=== PATIENT | female | born 1945 | race Two or more races ===

== ENCOUNTER 2024-09-22 17:15 | Emergency (ER) | payer OTHER, MEDICAID ==
[~2024-09-22] VITALS: Ht 162.6 cm; Wt 68.5 kg
--- NOTE | 2024-09-22 18:01 | ED.PDOC ---
Back pain HPI HPI Comments 79Y F with PMHx MS, DM, HTN, and HLD presents to ED via EMS for chief complaint back pain s/p fall. Additional symptoms include neck pain, posterior head pain, and bilateral hip pain. Per caregiver, pt was washing her hands when she lost her balance and fell backwards. Pt landed on her buttocks and her head hit the door of the restroom. Patient denies loss of consciousness. She denies any vision changes or new focal weakness. Patient's caregiver notes that the patient does have problems with equilibrium and often loses her balance and has fallen in the past. No other symptoms reported. Chief Complaint: Fall Injury Time Seen by MD: 17:50 Primary Care Provider: CHIP Reviewed Notes: Nurses Notes, Spool Cleaner Notes, Medications, Allergies Allergies: Coded Allergies: NO KNOWN ALLERGIES (Unverified , 05/21/18) Information Source: Patient, Emergency Med Personnel Mode of Arrival: EMS Brought in by: EMS Timing: Hours Duration: Since onset Location of Back pain: (B) Cervical, (B) Lower back, (B) Thoracic, (B) Upper back, Other (bilateral hips) Severity: Mild Prehospital treatment: None Quality: Sharp Onset: Fall Circumstance: Other History of: None Modifying Factors: Nothing Associated signs and symptoms: None Past Medical History PAST MEDICAL HISTORY: DM, High Lipids, HTN, Thyroid Past Medical History (Other): Multiple Sclerosis Surgical History: Denies all surgeries MOLD FORMS BUILDER History: No Pertinent MOLD FORMS BUILDER History Family History Family History: Unobtainable Social History Smoker: Non-Smoker Alcohol: Denies ETOH Use Drugs: Denies Drug Use Lives In: Home Constitutional: denies: chills, diaphoresis, fatigue, fever, malaise, sweats, weakness, others EENTM: denies: blurred vision, double vision, ear bleeding, ear discharge, ear drainage, ear pain, ear ringing, eye pain, eye redness, hearing loss, mouth pain, mouth swelling, nasal discharge, nose bleeding, nose congestion, nose pain, photophobia, tearing, throat pain, throat swelling, voice changes, others Respiratory: denies: cough, hemoptysis, orthopnea, SOB at rest, shortness of breath, SOB with excertion, stridor, wheezing, others Cardiovascular: denies: chest pain, dizzy spells, diaphoresis, Dyspnea on exertion, edema, irregular heart beat, left arm pain, lightheadedness, palpitations, PND, syncope, others Gastrointestinal: denies: abdomen distended, abdominal pain, blood streaked bowels, constipated, diarrhea, dysphagia, difficulty swallowing, hematemesis, melena, nausea, poor appetite, poor fluid intake, rectal bleeding, rectal pain, vomiting, others Genitourinary: denies: abnormal vagina bleeding, burning, dyspareunia, dysuria, flank pain, frequency, hematuria, incontinence, pain, , vagina discharge, urgency, others Neurological: denies: dizziness, fainting, headache, left sided numbness, left sided weakness, numbness, paresthesia, pre-existing deficit, right sided numbness, right sided weakness, seizure, speech problems, tingling, tremors, weakness, others Musculoskeletal: reports: back pain, neck pain, others (bilateral hip pain); denies: gout, joint pain, joint swelling, muscle pain, muscle stiffness Integumetry: denies: bruises, change in color, change in hair/nails, dryness, laceration, lesions, lumps, rash, wounds, others Allergic/Immunocompromised: denies: Difficulty Healing, Frequent Infections, Hives, Itching, others Hematologic/Lymphatic: denies: anemia, blood clots, easy bleeding, easy bruising, swollen glands, others Endocrine: denies: excessive hunger, excessive sweating, excessive thirst, excessive urination, flushing, intolerance to cold, intolerance to heat, unexplained weight gain, unexplained weight loss, others Psychiatric: denies: anxiety, bipolar disorder, depression, hopeless, panic disorder, schizophrenia, sleepless, suicidal, others All Other Systems: Reviewed and Negative Physical Exam General Appearance: No Apparent Distress HEENT: PERRL/EOMI, Other (Occipital scalp soft tissue tenderness and malaise soft tissue swelling. No crepitus or hematoma.) Neck: Full Range of Motion, Normal Inspection, Supple, Other (Upper midline and paraspinal neck tenderness to palpation. No step-off or bruising.) Respiratory: Chest Non-Tender, Lungs Clear, No Respiratory Distress, Normal Breath Sounds Cardiovascular: No Edema, No JVD, Regular Rate/Rhythm Breast Exam: Deferred Gastrointestinal: Non Tender, Soft, Other (G-tube) Genitalia: Deferred Pelvic: Deferred Rectal: Deferred Extremities: Normal inspection, Normal range of motion, No pedal edema, Tender (Bilateral hips, midline and paraspinal lumbosacral tenderness) Neurologic: Alert (nonverbal at baseline but responds appropriately to questions by nodding yes or no), Other (Moves all extremities.) Cerebellar Function: NOT DONE Reflexes: NOT DONE Skin: Dry, Normal Color, Warm Lymphatic: NOT DONE Was a procedure done? Was a procedure done?: No Back Pain Differential Dx Differential Diagnosis: Musculoskeletal Pain Other Differential Diagnosis Scalp contusion, concussion, skull fracture, intracranial hemorrhage, neck strain, spine fracture/subluxation, pelvic or hip fracture, contusion, among others X-Ray, Labs, Meds, VS Vital Signs Date Time Temp Pulse Resp B/P (MAP) Pulse Ox O2 Delivery O2 Flow Rate FiO2 09/22/24 18:50 81 18 96 Room Air* 0 21 09/22/24 17:25 98.2 90 15 112/53 (72) 98 98.2 Current Medications Medications (Trade) Dose Ordered Sig/Sekou Route Start Time Stop Time Status Last Admin Ketorolac Tromethamine (Toradol Injection) 30 mg ONCE ONCE IM 09/22/24 19:00 09/22/24 19:08 DC 09/22/24 19:37 ORDERING PHYSICIAN: ROXANN YATES MD PROCEDURE(s): HWOCT - HEAD WITHOUT CONTRAST REASON: Occipital head trauma ORDER NUMBER(s): [id number], ACCESSION NUMBER(s): [id number] Exam: CT HEAD WITHOUT CONTRAST History: Occipital head trauma Technique: [address] images through the posterior fossa and the supratentorial compartment were acquired without contrast and imaged using soft tissue and bone algorithms. RADIATION DOSE: DLP 916.48 mGy.cm; CTDI vol 54.85 mGy. Comparison: None Findings: There is no evidence of an intracranial hemorrhage, acute large vessel infarct, mass effect, or midline shift. There is mild cerebral atrophy. Moderate calcification of the carotid siphons. Right frontal, ethmoid, and maxillary sinus disease. The calvarium, orbits, remaining paranasal sinuses, sella, middle ears, and mastoids are unremarkable. The superficial soft tissues are within normal limits. Impression: 1. No acute intracranial abnormality. 2. Pansinus disease. RING PHYSICIAN: ROXANN YATES MD PROCEDURE(s): CS2 - CERVICAL WITHOUT CONTRAST REASON: Neck pain status post fall ORDER NUMBER(s): [id number], ACCESSION NUMBER(s): [id number] EXAM: CT CERVICAL WITHOUT CONTRAST INDICATION: Neck pain status post fall EXAM DATE: 09/22/2024 06:03 PM COMPARISON: None TECHNIQUE: Multiple axial CT images of the cervical spine were obtained using bone algorithm. Axial and coronal reformatting was done. Bone and soft tissue windows were reviewed. Radiation Dose Information: CT Dose: CTDI volume is not available mGy. Dose-length product is not available mGy*cm Findings: There is no evidence of an acute fracture or spondylolisthesis. The vertebral body heights are well-maintained. The craniocervical junction and dens are intact. No spinal canal stenosis. There is flattening of the cervical lordosis. The thyroid gland is unremarkable. The lung apices demonstrate no acute abnormality. The paraspinal and neck soft tissues appear within normal limits. C2-3: Normal C3-4: Normal C4-5: Normal C5-6: Normal C6-7: Normal C7-T1: Normal Impression: 1. No evidence of an acute fracture. RING PHYSICIAN: ROXANN YATES MD PROCEDURE(s): TS2CT - THORACIC SPINE WO CONTRAS REASON: Mid back pain status post fall ORDER NUMBER(s): [id number], ACCESSION NUMBER(s): [id number] Procedure: CT THORACIC SPINE WO CONTRAS 09/22/2024 06:05 PM Indication: Mid back pain status post fall Comparison Study: None Technique: Axial images thoracic were obtained and reformatted in coronal and sagittal planes. All CT scans at this medical facility are performed using dose modulation techniques as appropriate to a performed exam including the following: Automated exposure control was utilized; adjustment of the MA and/or KV according to patient size; and use of iterative reconstruction technique. CT Dose: CTDI volume is 28.95 mGy. Dose-length product is 950.98 mGy*cm FINDINGS: Bones: Mild chronic appearing depression of all thoracic endplates noted likely related to osteopenia /osteomalacia with resultant mild exaggerated kyphosis. Flowing anterior ossification is noted in the thoracic spine at several levels with preservation of disc spaces contiguous compatible with diffuse idiopathic skeletal hyperostosis. Soft tissues: Paraspinal and prevertebral soft tissues unremarkable. Atherosclerotic calcification of the bilateral carotid bulbs noted. IMPRESSION: 1. No acute osseous abnormality. RING PHYSICIAN: ROXANN YATES MD PROCEDURE(s): LS2CT - LS SPINE WO CONTRAST REASON: Low back pain status post fall ORDER NUMBER(s): [id number], ACCESSION NUMBER(s): [id number] CT OF THE LUMBAR SPINE WITHOUT CONTRAST HISTORY: Low back pain status post fall COMPARISON: Correlation made to abdomen and pelvis CT dated 04/10/2024 TECHNIQUE: Thin section helical axial scans of the lumbar spine obtained. Sagittal and coronal reformatted images were performed. One or more of the following radiation dose reduction techniques were used for this examination: automated exposure control, adjustment of the mA and/or kV according to patient size, use of iterative reconstruction technique. CTDI: 32.46 mGy DLP: 941.72 mGy-cm FINDINGS: No grossly displaced fractures or subluxations identified. Vertebral body heights appear maintained. Advanced disc disease mainly at L4-L5 and L5-S1. The bony spinal canal grossly patent. The sacroiliac joints appear symmetric. No free air or fluid in the imaged pelvis. Aortoiliac atherosclerotic calcifications noted. Colonic diverticulosis partially imaged. Visualized appendix appears normal caliber. IMPRESSION: Degenerative changes of the lower lumbar spine. No grossly displaced fractures or subluxations identified. If symptoms persist, follow-up MRI may be considered to further evaluate. RING PHYSICIAN: ROXANN YATES MD PROCEDURE(s): PL2CT - PELVIS WO CONTRAST REASON: Bilateral hip pain status post fall ORDER NUMBER(s): [id number], ACCESSION NUMBER(s): [id number] Procedure: CT PELVIS WO CONTRAST 09/22/2024 06:09 PM Indication: Bilateral hip pain status post fall Comparison Study: None Technique: Axial images pelvis were obtained and reformatted in coronal and sagi ttal planes. All CT scans at this medical facility are performed using dose modulation techniques as appropriate to a performed exam including the following: Automated exposure control was utilized; adjustment of the MA and/or KV according to patient size; and use of iterative reconstruction technique. CT Dose: CTDI volume is 18.35 mGy. Dose-length product is 616.0 mGy*cm FINDINGS: Bones: No acute fracture or dislocation. Pelvic bones are intact. The bilateral hip joints are maintained. Symphysis pubis SI joints are maintained. Soft tissues: Unremarkable. IMPRESSION: 1. No acute osseous abnormality. X-Ray, Labs, Meds, VS Comment 79-year-old female with a history of MS, diabetes, hypertension and hyperlipidemia brought in by caregiver for evaluation of head, back pain and bilateral hip pain status post fall Vitals unremarkable Exam remarkable for occipital scalp, midline and paraspinal cervical, thoracic and lumbar tenderness, bilateral hip tenderness Rhythm strip independently interpreted by me: Sinus rhythm, rate 90, no ectopy. CT head, C-spine, T-spine, L-spine and pelvis unremarkable for any acute fracture or acute traumatic finding Patient treated with the following in the ED: Toradol 30 mg IM On re-evaluation, patient stated pain had improved. Vitals were stable. Kandy ely appears stable for discharge with close outpatient follow-up with her primary physician. Rx meloxicam Time of 1ST Reevaluation: 18:20 Reevaluation 1ST: Unchanged Time of 2ND Reevaluation: 21:28 Reevaluation 2ND: Improved Patient Education/Counseling: Diagnosis, Treatment Family Education/Counseling: Diagnosis, Treatment Departure 1 Departure Time of Disposition: 21:28 Impression: Primary Impression: Fall Qualified Codes: W19.XXXA - Unspecified fall, initial encounter Additional Impressions: Scalp contusion Qualified Codes: S00.03XA - Contusion of scalp, initial encounter Neck strain Qualified Codes: S16.1XXA - Strain of muscle, fascia and tendon at neck level, initial encounter Back contusion Qualified Codes: S20.229A - Contusion of unspecified back wall of thorax, initial encounter Bilateral hip pain Disposition: HOME / SELF CARE / HOMELESS Condition: Stable Additional Instructions: Your CT scans did not show any broken bones or acute traumatic injury. The reports have been enclosed below. I have prescribed pain medication to take as needed. Follow-up with your primary doctor in 1-2 days. Return to ER for persistent or worsening symptoms. [place] [id number] Ph: [phone] DIAGNOSTIC IMAGING Diagnostic Imaging Report : [id number] Signed PATIENT: HAN POOLE ACCT: [id number] UNIT: [id number] : 1945 LOC: ER ROOM / BED: / AGE / SEX: 79 / F ADM STATUS: REG ER SERVICE 40 ORDERING PHYSICIAN: ROXANN YATES MD PROCEDURE(s): HWOCT - HEAD WITHOUT CONTRAST REASON: Occipital head trauma ORDER NUMBER(s): [id number], ACCESSION NUMBER(s): [id number] Exam: CT HEAD WITHOUT CONTRAST History: Occipital head trauma Technique: [address] images through the posterior fossa and the supratentorial compartment were acquired without contrast and imaged using soft tissue and bone algorithms. RADIATION DOSE: DLP 916.48 mGy.cm; CTDI vol 54.85 mGy. Comparison: None Findings: There is no evidence of an intracranial hemorrhage, acute large vessel infarct, mass effect, or midline shift. There is mild cerebral atrophy. Moderate calcification of the carotid siphons. Right frontal, ethmoid, and maxillary sinus disease. The calvarium, orbits, remaining paranasal sinuses, sella, middle ears, and mastoids are unremarkable. The superficial soft tissues are within normal limits. Impression: 1. No acute intracranial abnormality. 2. Pansinus disease. ENT: HAN POOLE ACCT: [id number] UNIT: [id number] : 1945 LOC: ER ROOM / BED: / AGE / SEX: 79 / F ADM STATUS: REG ER SERVICE 40 ORDERING PHYSICIAN: ROXANN YATES MD PROCEDURE(s): CS2 - CERVICAL WITHOUT CONTRAST REASON: Neck pain status post fall ORDER NUMBER(s): [id number], ACCESSION NUMBER(s): [id number] EXAM: CT CERVICAL WITHOUT CONTRAST INDICATION: Neck pain status post fall EXAM DATE: 09/22/2024 06:03 PM COMPARISON: None TECHNIQUE: Multiple axial CT images of the cervical spine were obtained using bone algorithm. Axial and coronal reformatting was done. Bone and soft tissue windows were reviewed. Radiation Dose Information: CT Dose: CTDI volume is not available mGy. Dose-length product is not available mGy*cm Findings: There is no evidence of an acute fracture or spondylolisthesis. The vertebral body heights are well-maintained. The craniocervical junction and dens are intact. No spinal canal stenosis. There is flattening of the cervical lordosis. The thyroid gland is unremarkable. The lung apices demonstrate no acute abnormality. The paraspinal and neck soft tissues appear within normal limits. C2-3: Normal C3-4: Normal C4-5: Normal C5-6: Normal C6-7: Normal C7-T1: Normal Impression: 1. No evidence of an acute fracture. ENT: HAN POOLE ACCT: [id number] UNIT: [id number] : 1945 LOC: ER ROOM / BED: / AGE / SEX: 79 / F ADM STATUS: REG ER SERVICE 174 ORDERING PHYSICIAN: ROXANN YATES MD PROCEDURE(s): TS2CT - THORACIC SPINE WO CONTRAS REASON: Mid back pain status post fall ORDER NUMBER(s): [id number], ACCESSION NUMBER(s): [id number] Procedure: CT THORACIC SPINE WO CONTRAS 09/22/2024 06:05 PM Indication: Mid back pain status post fall Comparison Study: None Technique: Axial images thoracic were obtained and reformatted in coronal and sagittal planes. All CT scans at this medical facility are performed using dose modulation techniques as appropriate to a performed exam including the followin g: Automated exposure control was utilized; adjustment of the MA and/or KV according to patient size; and use of iterative reconstruction technique. CT Dose: CTDI volume is 28.95 mGy. Dose-length product is 950.98 mGy*cm FINDINGS: Bones: Mild chronic appearing depression of all thoracic endplates noted likely related to osteopenia /osteomalacia with resultant mild exaggerated kyphosis. Flowing anterior ossification is noted in the thoracic spine at several levels with preservation of disc spaces contiguous compatible with diffuse idiopathic skeletal hyperostosis. Soft tissues: Paraspinal and prevertebral soft tissues unremarkable. Atherosclerotic calcification of the bilateral carotid bulbs noted. IMPRESSION: 1. No acute osseous abnormality. ENT: HAN POOLE ACCT: [id number] UNIT: [id number] : 1945 LOC: ER ROOM / BED: / AGE / SEX: 79 / F ADM STATUS: REG ER SERVICE 40 ORDERING PHYSICIAN: ROXANN YATES MD PROCEDURE(s): LS2CT - LS SPINE WO CONTRAST REASON: Low back pain status post fall ORDER NUMBER(s): [id number], ACCESSION NUMBER(s): [id number] CT OF THE LUMBAR SPINE WITHOUT CONTRAST HISTORY: Low back pain status post fall COMPARISON: Correlation made to abdomen and pelvis CT dated 04/10/2024 TECHNIQUE: Thin section helical axial scans of the lumbar spine obtained. Sagittal and coronal reformatted images were performed. One or more of the following radiation dose reduction techniques were used for this examination: automated exposure control, adjustment of the mA and/or kV according to patient size, use of iterative reconstruction technique. CTDI: 32.46 mGy DLP: 941.72 mGy-cm FINDINGS: No grossly displaced fractures or subluxations identified. Vertebral body heights appear maintained. Advanced disc disease mainly at L4-L5 and L5-S1. The bony spinal canal grossly patent. The sacroiliac joints appear symmetric. No free air or fluid in the imaged pelvis. Aortoiliac atherosclerotic calcifications noted. Colonic diverticulosis partially imaged. Visualized appendix appears normal caliber. IMPRESSION: Degenerative changes of the lower lumbar spine. No grossly displaced fractures or subluxations identified. If symptoms persist, follow-up MRI may be considered to further evaluate. ENT: HAN POOLE ACCT: [id number] UNIT: [id number] : 1945 LOC: ER ROOM / BED: / AGE / SEX: 79 / F ADM STATUS: REG ER SERVICE [id number] ORDERING PHYSICIAN: ROXANN YATES MD PROCEDURE(s): PL2CT - PELVIS WO CONTRAST REASON: Bilateral hip pain status post fall ORDER NUMBER(s): [id number], ACCESSION NUMBER(s): [id number] Procedure: CT PELVIS WO CONTRAST 09/22/2024 06:09 PM Indication: Bilateral hip pain status post fall Comparison Study: None Technique: Axial images pelvis were obtained and reformatted in coronal and sagittal planes. All CT scans at this medical facility are performed using dose modulation techniques as appropriate to a performed exam including the following: Automated exposure control was utilized; adjustment of the MA and/or KV according to patient size; and use of iterative reconstruction technique. CT Dose: CTDI volume is 18.35 mGy. Dose-length product is 616.0 mGy*cm FINDINGS: Bones: No acute fracture or dislocation. Pelvic bones are intact. The bilateral hip joints are maintained. Symphysis pubis SI joints are maintained. Soft tissues: Unremarkable. IMPRESSION: 1. No acute osseous abnormality. e-Prescriptions Meloxicam (Meloxicam) Pow 5 ML GT DAILY PRN, #120 ML meloxicam oral suspension 7.5mg/5mL 5 mL via GT daily prn pain Prov: ROXANN YATES MD 09/22/24 Discharged With: Commercial Intelligence Manager Critical Care Note Critical Care Time?: No Stability Stability form required: No Heart Score Heart Score: Heart Score Response (Comments) Value History N/A 0 EKG N/A 0 Age N/A 0 Risk Factors N/A 0 Troponin N/A 0 Total 0 I personally scribed for ROXANN YATES MD ([email or web address]) on 09/22/24 at 18:01. Electronically submitted by Leslie Nair ([email or web address]). I personally scribed for ROXANN YATES MD ([email or web address]) on 09/22/24 at 18:56. Electronically submitted by Leslie Nair ([email or web address]). ROXANN YATES MD Sep 22, 2024 18:01
--- NOTE | 2024-09-22 18:34 | DVH ---
Exam: CT HEAD WITHOUT CONTRAST History: Occipital head trauma Technique: [address] images through the posterior fossa and the supratentorial compart ment were acquired without contrast and imaged using soft tissue and bone algorithms. RADIATION DOSE: DLP 916.48 mGy.cm; CTDI vol 54.85 mGy. Comparison: None Findings: There is no evidence of an intracranial hemorrhage, acute large vessel infarct, mass effect, or midli ne shift. There is mild cerebral atrophy. Moderate calcification of the carotid siphons. Right frontal, ethmoid, and maxillary sinus disease. The calvarium, orbits, remaining paranasal sinus es, sella, middle ears, and mastoids are unremarkable. The superficial soft tissues are within normal limits. Impression: 1. No acute intracranial abnormality. 2. Pansinus disease.
--- NOTE | 2024-09-22 18:39 | DVH ---
Procedure: CT THORACIC SPINE WO APOLLO 09/22/2024 06:05 PM Indication: Mid back pain status post fall Comparison Study: None Technique: Axial images thoracic were obtained and reformatted in coronal and sagittal planes. All CT scans at this medical facility are performed using dose modulation techniques as appropriate to a pe rformed exam including the following: Automated exposure control was utilized; adjustment of the MA a nd/or KV according to patient size; and use of iterative reconstruction technique. CT Dose: CTDI volu ky is 28.95 mGy. Dose-length product is 950.98 mGy*cm FINDINGS: Bones: Mild chronic appearing depression of all thoracic endplates noted likely related to osteopenia /osteomalacia with resultant mild exaggerated kyphosis. Flowing anterior ossification is noted in th e thoracic spine at several levels with preservation of disc spaces contiguous compatible with diffus e idiopathic skeletal hyperostosis. Soft tissues: Paraspinal and prevertebral soft tissues unremarkable. Atherosclerotic calcification of the bilateral carotid bulbs noted. IMPRESSION: 1. No acute osseous abnormality.
--- NOTE | 2024-09-22 18:42 | DVH ---
EXAM: CT CERVICAL WITHOUT CONTRAST INDICATION: Neck pain status post fall EXAM DATE: 09/22/2024 06:03 PM COMPARISON: None TECHNIQUE: Multiple axial CT images of the cervical spine were obtained using bone algorithm. Axial a nd coronal reformatting was done. Bone and soft tissue windows were reviewed. Radiation Dose Information: CT Dose: CTDI volume is not available mGy. Dose-length product is not available mGy*cm Findings: There is no evidence of an acute fracture or spondylolisthesis. The vertebral body heights are well-m aintained. The craniocervical junction and dens are intact. No spinal canal stenosis. There is flattening of the cervical lordosis. The thyroid gland is unremarkable. The lung apices demonstrate no acute abnormality. The paraspinal a nd neck soft tissues appear within normal limits. C2-3: Normal C3-4: Normal C4-5: Normal C5-6: Normal C6-7: Normal C7-T1: Normal Impression: 1. No evidence of an acute fracture.
--- NOTE | 2024-09-22 18:47 | DVH ---
Procedure: CT PELVIS WO CONTRAST 09/22/2024 06:09 PM Indication: Bilateral hip pain status post fall Comparison Study: None Technique: Axial images pelvis were obtained and reformatted in coronal and sagittal planes. All CT s cans at this medical facility are performed using dose modulation techniques as appropriate to a perf ormed exam including the following: Automated exposure control was utilized; adjustment of the MA and /or KV according to patient size; and use of iterative reconstruction technique. CT Dose: CTDI volume is 18.35 mGy. Dose-length product is 616.0 mGy*cm FINDINGS: Bones: No acute fracture or dislocation. Pelvic bones are intact. The bilateral hip joints are mainta ined. Symphysis pubis SI joints are maintained. Soft tissues: Unremarkable. IMPRESSION: 1. No acute osseous abnormality.
--- NOTE | 2024-09-22 18:48 | DVH ---
CT OF THE LUMBAR SPINE WITHOUT CONTRAST HISTORY: Low back pain status post fall COMPARISON: Correlation made to abdomen and pelvis CT dated 04/10/2024 TECHNIQUE: Thin section helical axial scans of the lumbar spine obtained. Sagittal and coronal reform atted images were performed. One or more of the following radiation dose reduction techniques were us ed for this examination: automated exposure control, adjustment of the mA and/or kV according to wood ent size, use of iterative reconstruction technique. CTDI: 32.46 mGy DLP: 941.72 mGy-cm FINDINGS: No grossly displaced fractures or subluxations identified. Vertebral body heights appear maintained. Advanced disc disease mainly at L4-L5 and L5-S1. The bony spinal canal grossly patent. The sacroiliac joints appear symmetric. No free air or fluid in the imaged pelvis. Aortoiliac atherosclerotic calcifications noted. Colonic diverticulosis partially imaged. Visualized appendix appears normal caliber. IMPRESSION: Degenerative changes of the lower lumbar spine. No grossly displaced fractures or subluxations identi fied. If symptoms persist, follow-up MRI may be considered to further evaluate.
[2024-09-22 18:50] VITALS: PULSE 81; RESP 18; O2SAT 96
[2024-09-22] MEDS: HYDROcodone-ACET 5/325MG TAB PO ONE (19:01)
[2024-09-22] MEDS: KETOROLAC TROMETH 30 MG/ML 1ML VIAL IM ONE (19:37)
[2024-09-22] MEDS ORDERED: MELOPOW GT (21:37)
[2024-09-22 22:18] VITALS: BP 116/70; PULSE 83; RESP 16; TEMP 98.4; O2SAT 94
== END 2024-09-22 22:24 | disposition home or self-care (01) ==
LOC: EDBD 17:15 → EDUNIT# 17:15 → ER 17:24
DX: S16.1XXA Strain of muscle, fascia and tendon at neck level, initial encounter (principal); S00.03XA Contusion of scalp, initial encounter; S39.012A Strain of muscle, fascia and tendon of lower back, initial encounter; S29.012A Strain of muscle and tendon of back wall of thorax, initial encounter; M25.552 Pain in left hip; M25.551 Pain in right hip; I10 Essential (primary) hypertension; E11.9 Type 2 diabetes mellitus without complications; E78.5 Hyperlipidemia, unspecified; W01.0XXA Fall on same level from slipping, tripping and stumbling without subsequent striking against object, initial encounter; Y93.89 Activity, other specified; Y92.89 Other specified places as the place of occurrence of the external cause; Y99.8 Other external cause status
CPT/HCPCS: 70450; 72125; 72128; 72131; 72192; 96372; 99285; J1885

== ENCOUNTER 2025-02-23 20:54 | Emergency (ER) | payer OTHER, MEDICAID ==
[~2025-02-23] VITALS: Ht 152.4 cm; Wt 59.1 kg
[~2025-02-23 20:54] MED LIST: MELOPOW GT
[2025-02-23 21:53] VITALS: BP 126/55; PULSE 71; RESP 12; TEMP 97.7; O2SAT 95
--- NOTE | 2025-02-23 22:12 | ED.PDOC ---
History of Present Illness HPI Comments Patient is an 79-year-old nonverbal female who was brought in by EMS with her caregiver who is Frisian-speaking only for evaluation of a accidentally dislodged G-tube. According to caregiver, patient accidentally pulled her G- tube out. No blood loss. Vital signs were stable on arrival. Chief Complaint: Tube Replacement Time Seen by MD: 21:10 Primary Care Provider: CHIP Reviewed Notes: Nurses Notes Allergies: Coded Allergies: NO KNOWN ALLERGIES (Unverified , 05/21/18) Home Meds Active Scripts Meloxicam (Meloxicam) Pow, 5 ML GT DAILY PRN, #120 ML meloxicam oral suspension 7.5mg/5mL 5 mL via GT daily prn pain Prov:ROXANN YATES MD 09/22/24 Information Source: Patient, Friend Mode of Arrival: EMS Severity: Mild Timing: Minutes Duration: Since onset Prehospital treatment: None Past Medical History PAST MEDICAL HISTORY: DM, High Lipids, HTN, Thyroid Surgical History: Denies all surgeries Surgical History (Other): Patient has a permanent G-tube in place LAND DEVELOPMENT MANAGER History: No Pertinent LAND DEVELOPMENT MANAGER History Family History Family History: Unobtainable Social History Smoker: Non-Smoker Alcohol: Denies ETOH Use Drugs: Denies Drug Use Lives In: Home Constitutional: denies: chills, diaphoresis, fatigue, fever, malaise, sweats, weakness, others EENTM: denies: blurred vision, double vision, ear bleeding, ear discharge, ear drainage, ear pain, ear ringing, eye pain, eye redness, hearing loss, mouth pain, mouth swelling, nasal discharge, nose bleeding, nose congestion, nose pain, photophobia, tearing, throat pain, throat swelling, voice changes, others Respiratory: denies: cough, hemoptysis, orthopnea, SOB at rest, shortness of breath, SOB with excertion, stridor, wheezing, others Cardiovascular: denies: chest pain, dizzy spells, diaphoresis, Dyspnea on exertion, edema, irregular heart beat, left arm pain, lightheadedness, palpitations, PND, syncope, others Gastrointestinal: denies: abdomen distended, abdominal pain, blood streaked bowels, constipated, diarrhea, dysphagia, difficulty swallowing, hematemesis, melena, nausea, poor appetite, poor fluid intake, rectal bleeding, rectal pain, vomiting, others Genitourinary: denies: abnormal vagina bleeding, burning, dyspareunia, dysuria, flank pain, frequency, hematuria, incontinence, pain, , vagina discharge, urgency, others Neurological: denies: dizziness, fainting, headache, left sided numbness, left sided weakness, numbness, paresthesia, pre-existing deficit, right sided numbne ss, right sided weakness, seizure, speech problems, tingling, tremors, weakness, others Musculoskeletal: denies: back pain, gout, joint pain, joint swelling, muscle pain, muscle stiffness, neck pain, others Integumetry: denies: bruises, change in color, change in hair/nails, dryness, laceration, lesions, lumps, rash, wounds, others Allergic/Immunocompromised: denies: Difficulty Healing, Frequent Infections, Hives, Itching, others Hematologic/Lymphatic: denies: anemia, blood clots, easy bleeding, easy bruising, swollen glands, others Endocrine: denies: excessive hunger, excessive sweating, excessive thirst, excessive urination, flushing, intolerance to cold, intolerance to heat, unexplained weight gain, unexplained weight loss, others Psychiatric: denies: anxiety, bipolar disorder, depression, hopeless, panic disorder, schizophrenia, sleepless, suicidal, others Physical Exam General Appearance: No Apparent Distress (Patient did not appear to be in distress at time of evaluation. Patient was nonverbal and therefore, pain assessments were difficult.), Normal HEENT: Normal ENT Inspection, Pharynx Normal, TMs Normal Neck: Full Range of Motion, Non-Tender, Normal, Normal Inspection Respiratory: Chest Non-Tender, Lungs Clear, No Accessory Muscle Use, No Respiratory Distress, Normal Breath Sounds Cardiovascular: No Edema, No JVD, No Murmur, No Gallop, Normal Peripheral Pulses, Regular Rate/Rhythm Breast Exam: Deferred Gastrointestinal: Other (Patient appears to have a patent G-tube site in the left side of her abdomen. No blood loss. No signs of trauma.) Genitalia: Deferred Pelvic: Deferred Rectal: Deferred Extremities: No calf tenderness, Normal capillary refill, Normal inspection, Normal range of motion, Non-tender, No pedal edema Neurologic: Alert Cerebellar Function: NOT DONE Reflexes: NOT DONE Skin: Dry, Normal Color, Warm Lymphatic: No Adenopathy Was a procedure done? Was a procedure done?: Yes Sedation Sedation?: No Other Procedure Notes We were able to locate a 16 gauge G-tube in the surgical center. G-tube was placed and inflated without event. Patient tolerated procedure well. Clean dressing applied. Differential Dx Considerations may include: Dislodged G-tube X-Ray, Labs, Meds, VS Vital Signs Date Time Temp Pulse Resp B/P (MAP) Pulse Ox O2 Delivery O2 Flow Rate FiO2 02/23/25 21:53 97.7 71 12 126/55 (78) 95 97.7 02/23/25 21:40 Room Air* 0 21 02/23/25 20:55 97.7 74 16 128/57 95 97.7 X-Ray, Labs, Meds, VS Comment Patient tolerated G-tube placement well. Advised patient follow up with her primary care provider and GI for re-evaluation in a few days. Time of 1ST Reevaluation: 22:26 Reevaluation 1ST: Improved Consultation: PCP, GI Patient Education/Counseling: Diagnosis, Treatment Family Education/Counseling: Diagnosis, Treatment SEPSIS Sepsis Screen Date sepsis recognized/suspect: Feb 23, 2025 Time Sepsis recognized/suspect: 2054 Recent Procedure: No On Antibiotic Therapy: No Respiratory Rate >20: No Heart Rate >90: No Temp<36 C (96.8 F) or >38.3 C: No SBP <90 or MAP <65 mmHG: No New Acute Mental Status Change: No Is the patient on CPAP, BIPAP,: No Vital Signs Date Time Temp Pulse Resp B/P (MAP) Pulse Ox O2 Delivery O2 Flow Rate FiO2 02/23/25 21:53 97.7 71 12 126/55 (78) 95 97.7 02/23/25 21:40 Room Air* 0 21 02/23/25 20:55 97.7 74 16 128/57 95 97.7 Departure 1 Departure Time of Disposition: 22:25 Impression: Primary Impression: Gastrostomy tube dysfunction Disposition: HOME / SELF CARE / HOMELESS Condition: Stable Additional Instructions: Advised patient to follow up with her primary care provider and/or GI in the next few days for re-evaluation. Discharged With: Self, Machine Stuffer Automatic Critical Care Note Critical Care Time?: No Stability Stability form required: No Heart Score Heart Score: Heart Score Response (Comments) Value History N/A 0 EKG N/A 0 Age N/A 0 Risk Factors N/A 0 Troponin N/A 0 Total 0 ODESSA GOFF [facility] Feb 23, 2025 22:12
== END 2025-02-23 23:00 | disposition home or self-care (01) ==
LOC: EDBD 20:54 → ER 20:57
DX: K94.23 Gastrostomy malfunction (principal); E11.9 Type 2 diabetes mellitus without complications; I10 Essential (primary) hypertension; E78.5 Hyperlipidemia, unspecified; Z79.899 Other long term (current) drug therapy; Z98.890 Other specified postprocedural states; Y84.8 Other medical procedures as the cause of abnormal reaction of the patient, or of later complication, without mention of misadventure at the time of the procedure
CPT/HCPCS: 43762